=== PATIENT | male | born 2000 | race Caucasian/White ===

== ENCOUNTER 2023-04-23 13:14 | Emergency (ER) | payer OTHER ==
[~2023-04-23] VITALS: Ht 182.9 cm; Wt 84.3 kg
[2023-04-23] MEDS: ACETAMINOPHEN 325 MG TAB PO ONE (14:29)
[2023-04-23] MEDS: IBUPROFEN 600MG TAB PO ONE (14:29)
[2023-04-23 14:57] VITALS: BP 122/82; TEMP 97.9; O2SAT 100
== END 2023-04-23 14:59 | disposition home or self-care (01) ==
LOC: M ED 13:14
DX: S06.0X0A Concussion without loss of consciousness, initial encounter (principal); Y92.9 Unspecified place or not applicable; Y93.9 Activity, unspecified; Y99.9 Unspecified external cause status; W10.8XXA Fall (on) (from) other stairs and steps, initial encounter; F17.290 Nicotine dependence, other tobacco product, uncomplicated

== ENCOUNTER → 2023-09-29 | Outpatient (REF) | LOC: M PLAIMG 11:51 | PROVIDERS: ATTEND Family Medicine | DX: R52 Pain, unspecified (principal) ==